=== PATIENT | female | born 1985 | race African-American/Black ===

== ENCOUNTER 2016-11-13 16:50 | Emergency (ER) | payer BC ==
[2016-11-13 17:27] VITALS: BP 129/76; PULSE 80; TEMP 97.8; BMI 26.5
[2016-11-13 17:38] LABS: URINE APPEARANCE CLEAR; URINE BILIRUBIN NEGATIVE (NEGATIVE); URINE COLOR STRAW; URINE GLUCOSE (UA) NEGATIVE (NEGATIVE); URINE KETONE NEGATIVE (NEGATIVE); URINE NITRITE NEGATIVE (NEGATIVE); URINE PROTEIN NEGATIVE (NEGATIVE); URINE UROBILINOGEN NEGATIVE E.U./dl (0.2-1.0)
[2016-11-13 17:49] LABS: URINE BLOOD 3+ (NEGATIVE); URINE LEUK ESTERASE 3+ (NEGATIVE)
[2016-11-13 17:59] LABS: URINE BACTERIA RARE /hpf (NONE SEEN); URINE RBC 1 /hpf (0-3); URINE WBC 10 /hpf (3-5); YEAST RARE
--- NOTE | 2016-11-13 18:02 | PDOC ---
History of Present Illness - General Chief Complaint: Urinary Problem Stated Complaint: UTI Time Seen by Provider: 11/13/16 17:50 History Source: Patient - History of Present Illness Timing/Duration: reports: constant Past History - Past Medical History Allergies/Adverse Reactions: Allergies Allergy/AdvReac Type Severity Reaction Status Date / Time No Known Allergies Allergy Verified 11/13/16 17:27 Home Medications: Ambulatory Orders Albuterol Sulfate Inhaler - [Ventolin HFA Inhaler -] 1 - 2 inh PO Q4H PRN #1 inhaler 04/20/16 Azithromycin [Zithromax 250mg Tablets -] 250 mg PO DAILY #6 tab 04/20/16 Nitrofurantoin Monohyd/M-Cryst [Macrobid -] 100 mg PO BID #14 capsule 11/13/16 Other medical history: PT DENIES MEDICAL HX - Immunization History Immunization Up to Date: Yes - Psycho/Social/Smoking Cessation Hx Anxiety: No Suicidal Ideation: No Smoking Status: No Smoking History: Former smoker Have you smoked in the past 12 months: Yes Number of Cigarettes Smoked Daily: 12 Cigars Per Day: 0 Information on smoking cessation initiated: No Hx Alcohol Use: No Drug/Substance Use Hx: No Substance Use Type: Marijuana Review of Systems - Review of Systems Constitutional: No: Chills, Fever : Yes: Dysuria, Frequency. No: Flank Pain, Hematuria *Physical Exam - Vital Signs Last Vital Signs Temp Pulse Resp BP Pulse Ox 97.8 F 80 16 129/76 97 11/13/16 17:22 11/13/16 17:22 11/13/16 17:22 11/13/16 17:22 11/13/16 17:22 - Physical Exam General Appearance: Yes: Appropriately Dressed. No: Apparent Distress HEENT: positive: Normal Voice Neck: positive: Supple Respiratory/Chest: negative: Respiratory Distress Gastrointestinal/Abdominal: positive: Soft. negative: Tender Musculoskeletal: negative: CVA Tenderness Integumentary: positive: Dry, Warm Neurologic: positive: Fully Oriented, Alert, Normal Mood/Affect ED Treatment Course - ADDITIONAL ORDERS Additional order review: Laboratory Results 11/13/16 17:29 Urine Color Straw Urine Appearance Clear Urine pH 6.0 Ur Specific [place] 1.002 Urine Protein Negative Urine Glucose (UA) Negative Urine Ketones Negative Urine Blood 3+ H Urine Nitrite Negative Urine Bilirubin Negative Urine Urobilinogen Negative Ur Leukocyte Esterase 3+ H Urine HCG, Qual Negative Medical Decision Making - Medical Decision Making 11/13/16 18:01 31-year-old female history of recurrent UTIs, here with dysuria with urinary frequency today, similar to her prior UTIs. No flank pain, nausea, vomiting, fever or chills. UA sent at triage and positive for leuk esterase and blood. Will treat, prior urine sensitivities reviewed *DC/Admit/Observation/Transfer Diagnosis at time of Disposition: UTI (urinary tract infection) Qualifiers: Urinary tract infection type: acute cystitis Hematuria presence: without hematuria Qualified Code(s): N30.00 - Acute cystitis without hematuria - Discharge Dispostion Disposition: HOME Condition at time of disposition: Good - Prescriptions Prescriptions: Nitrofurantoin Monohyd/M-Cryst [Macrobid -] 100 mg PO BID #14 capsule - Patient Instructions Printed Discharge Instructions: Urinary Tract Infection Additional Instructions: Take antibiotics as directed
== END 2016-11-13 18:58 | disposition home or self-care (01) ==
LOC: JERFT 16:50
DX: N30.01 Acute cystitis with hematuria (principal)
CPT/HCPCS: 81003; 81015; 84703; 99281-25

== ENCOUNTER 2017-10-13 11:26 | Emergency (ER) | payer BC ==
[2017-10-13 11:34] VITALS: BP 128/50; PULSE 106; TEMP 98.4; BMI 26.2
[2017-10-13] MEDS ORDERED: ALBUTEROL SO4 0.083% IH SOL 2.5 MG/3 ML VIAL.NEB. NEB ONE ×2 (12:00→12:07)
--- NOTE | 2017-10-13 12:16 | PDOC ---
History of Present Illness - General Chief Complaint: Cold Symptoms Stated Complaint: CHILLS, COUGHING, BODY ACHES Time Seen by Provider: 10/13/17 11:55 History Source: Patient Exam Limitations: No Limitations - History of Present Illness Initial Comments: 10/13/17 12:37 32-year-old female presents the emergency with complaints of fever, myalgia, cough, wheezing, and myalgia for the past 2 days. Patient states took no medication decided to come to the ER today. Patient denies recent illness, recent travel, recent sick contacts. Timing/Duration: reports: other (2 days) Severity: reports: moderate Possible Cause: Yes: occasional episodes Associated Symptoms: reports: cough, fever/chills, muscle aches, wheezing Past History - Travel Traveled outside of the country in the last 30 days: No - Past Medical History Allergies/Adverse Reactions: Allergies Allergy/AdvReac Type Severity Reaction Status Date / Time No Known Allergies Allergy Verified 10/13/17 11:28 Home Medications: Ambulatory Orders NK [No Known Home Medication] 10/13/17 COPD: No - Immunization History Immunization Up to Date: Yes - Suicide/Smoking/Psychosocial Hx Smoking Status: No Smoking History: Current every day smoker Have you smoked in the past 12 months: Yes Number of Cigarettes Smoked Daily: 6 Cigars Per Day: 0 Information on smoking cessation initiated: Yes 'Breaking Loose' booklet given: 10/13/17 Hx Alcohol Use: No Drug/Substance Use Hx: No Substance Use Type: Marijuana Patient Lives Alone: No Lives with/in: spouse/SO Respiratory Specific PMHX - Complaint Specific PMHX Bronchitis: No Pneumonia: No Review of Systems - Review of Systems Able to Perform ROS?: Yes Constitutional: Yes: Chills, Fever, Malaise Respiratory: Yes: Cough, Wheezing Cardiac (ROS): No: Symptoms Reported ABD/GI: No: Symptoms Reported : No: Symptoms Reported Musculoskeletal: No: Symptoms Reported Integumentary: No: Symptoms Reported Neurological: No: Symptoms reported *Physical Exam - Vital Signs Last Vital Signs Temp Pulse Resp BP Pulse Ox 98.4 F 106 H 18 128/50 100 10/13/17 11:29 10/13/17 11:29 10/13/17 11:29 10/13/17 11:29 10/13/17 11:29 - Physical Exam General Appearance: Yes: Nourished, Appropriately Dressed. No: Apparent Distress HEENT: positive: EOMI, TARAN, TMs Normal, Pharynx Normal. negative: Pale Conjunctivae Neck: positive: Supple Respiratory/Chest: positive: Wheezing (right base on inspiration) Cardiovascular: positive: Regular Rhythm, Tachycardia. negative: Murmur Gastrointestinal/Abdominal: positive: Soft. negative: Tenderness Integumentary: positive: Normal Color, Warm, Moist Neurologic: positive: Motor Strength 5/5 (ambulatory) Medical Decision Making - Medical Decision Making 10/13/17 12:42 Patient with URI symptoms and on exam had reason to the right base. Patient ordered for influenza swab and albuterol neb 10/13/17 13:06 Influenza swab negative. Patient will be treated for acute wheezy bronchitis secondary to clinical exam and physical complaints, history of bronchitis, and history of smoking. *DC/Admit/Observation/Transfer Diagnosis at time of Disposition: Acute wheezy bronchitis - Discharge Dispostion Disposition: HOME Condition at time of disposition: Good - Referrals Referrals: Bruno Zayas MD [Primary Care Provider] - - Patient Instructions Printed Discharge Instructions: DI for Acute Bronchitis Additional Instructions: Take medication as prescribed and drin plenty of fluids. May take Motrin or Tylenol for discomfort. - Post Discharge Activity
== END 2017-10-13 13:13 | disposition home or self-care (01) ==
LOC: JERFT 11:26
PROC: 3E0F7GC Introduction of Other Therapeutic Substance into Respiratory Tract, Via Natural or Artificial Opening (ICD-10-PCS; principal; 2017-10-13)
DX: J20.9 Acute bronchitis, unspecified (principal)
CPT/HCPCS: 87804; 99281-25

== ENCOUNTER 2018-05-12 22:32 | Emergency (ER) | payer BC ==
[2018-05-12 22:41] VITALS: BP 116/82; PULSE 107; TEMP 99.4; BMI 25.0
[2018-05-12 23:46] LABS: URINE APPEARANCE CLEAR; URINE BILIRUBIN NEGATIVE (<2.0 mg/dL); URINE COLOR LTYELLOW; URINE GLUCOSE (UA) NEGATIVE (NEGATIVE); URINE KETONE NEGATIVE (NEGATIVE); URINE LEUK ESTERASE NEGATIVE (NEGATIVE); URINE NITRITE NEGATIVE (NEGATIVE); URINE PROTEIN NEGATIVE (NEGATIVE); URINE UROBILINOGEN NEGATIVE mg/dL (0.2-1.0)
[2018-05-12 23:47] LABS: EPI CELLS RARE /HPF (FEW); URINE BACTERIA RARE /hpf (NONE SEEN); URINE MUCUS RARE
[2018-05-12 23:48] LABS: HCG,QUALITATIVE URINE Negative
--- NOTE | 2018-05-12 23:56 | PDOC ---
History of Present Illness <Colin Posey - Last Filed: 05/13/18 01:03> - General History Source: Patient Exam Limitations: No Limitations - History of Present Illness Initial Comments: 05/13/18 00:06 33F with PMH of "borderline asthma" presents to the ER with a one day history of fever (subjective), chills, throat pain, non productive cough, and congestion. 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 She states every time she works outside she gets sick but this time she felt a little worse than usual. She denies nausea vomiting chest pain. She states when she tries to take a deep breath her chest feels heavy. She denies all other symptoms. She is refusing CXR because she does not want to get a bill for it. She would like a note for missing work today. <Everton Mccormack - Last Filed: 05/13/18 01:10> - General Chief Complaint: Cold Symptoms Stated Complaint: WHEEZING, SORE THROAT Time Seen by Provider: 05/12/18 23:36 Past History <Colin Posey - Last Filed: 05/13/18 01:03> - Past Medical History Asthma: Yes COPD: No - Immunization History Immunization Up to Date: Yes - Suicide/Smoking/Psychosocial Hx Smoking Status: No Smoking History: Never smoked Have you smoked in the past 12 months: No Number of Cigarettes Smoked Daily: 12 Cigars Per Day: 0 Information on smoking cessation initiated: No 'Breaking Loose' booklet given: 10/13/17 Hx Alcohol Use: No Drug/Substance Use Hx: No Substance Use Type: Marijuana <Everton Mccormack - Last Filed: 05/13/18 01:10> - Past Medical History Allergies/Adverse Reactions: Allergies Allergy/AdvReac Type Severity Reaction Status Date / Time No Known Allergies Allergy Verified 05/12/18 22:40 Home Medications: Ambulatory Orders Albuterol Sulfate Inhaler - [Ventolin HFA Inhaler -] 1 - 2 inh PO QID PRN #1 inhaler 10/13/17 Azithromycin [Zithromax Tri-Cedric (3 DAYS) -] 500 mg PO DAILY #3 tablet 10/13/17 predniSONE [Deltasone -] 40 mg PO DAILY #6 tablet 10/13/17 Prednisone [Prednisone 50 MG TABLETS] 50 mg PO DAILY #4 tablet 05/13/18 Review of Systems - Review of Systems Able to Perform ROS?: Yes Is the patient limited Albanian proficient: No Constitutional: Yes: Chills, Fever (subjective) HEENTM: Yes: Nose Congestion, Throat Pain, Throat Swelling Respiratory: Yes: Cough Cardiac (ROS): Yes: Chest Tightness ABD/GI: No: Symptoms Reported, See HPI, Abdominal Distended, Abd. Pain w/ defecation, Blood Streaked Bowels, Constipated, Diarrhea, Difficulty Swallowing , Nausea, Poor Appetite, Poor Fluid Intake, Rectal Bleeding, Vomiting, Indigestion, Abdominal cramping, Tarry Stools, Other : No: Symptoms Reported, See HPI, Burning, Dysuria, Discharge, Frequency, Flank Pain, Hematuria, Incontinence, Pain, Urgency, Testicular Mass, Testicular Swelling, Lesions, Testicular Pain, Other Musculoskeletal: No: Symptoms Reported, See HPI, Back Pain, Gout, Joint Pain, Joint Swelling, Muscle Pain, Muscle Weakness, Neck Pain, Joint Stiffness, Other Integumentary: No: Symptoms Reported, See HPI, Bruising, Change in Color, Change in Hair/Nails, Dryness, Erythema, Flushing, Lesions, Lumps, Pallor, Pruritus, Rash, Sweating, Other Neurological: No: Symptoms reported, See HPI, Headache, Numbness, Paresthesia, Pre-Existing Deficit, Seizure, Tingling, Tremors, Weakness, Unsteady Gait, Ataxia, Dizziness, Other Psychiatric: No: Anxiety, Depression, Frequent Crying, Stressors, Sleep Pattern Change, Emotional Problems, Mood Swings, Change in Appetite, Other Endocrine: No: Symptoms Reported, See HPI, Excessive Sweating, Flushing, Intolerance to Cold, Intolerance to Heat, Increased Hunger, Increased Thirst, Increased Urine, Unexplained Weight Gain, Unexplained Weight Loss, Change in Weight, Other Hematologic/Lymphatic: No: Symptoms Reported, See HPI, Anemia, Blood Clots, Easy Bleeding, Easy Bruising, Bleeding Diathesis, Lymph Node Abnormalities, Swollen Glands, Other <Everton Mccormack - Last Filed: 05/13/18 01:10> *Physical Exam - Vital Signs Last Vital Signs Temp Pulse Resp BP Pulse Ox 99.4 F 107 H 16 116/82 100 05/12/18 22:38 05/12/18 22:38 05/12/18 22:38 05/12/18 22:38 05/12/18 22:38 <Colin Posey - Last Filed: 05/13/18 01:03> - Vital Signs Last Vital Signs Temp Pulse Resp BP Pulse Ox 99.4 F 107 H 16 116/82 100 05/12/18 22:38 05/12/18 22:38 05/12/18 22:38 05/12/18 22:38 05/12/18 22:38 - Physical Exam General Appearance: Yes: Nourished, Appropriately Dressed. No: Apparent Distress HEENT: positive: EOMI, TARAN, Pharyngeal Erythema (mild), Tonsillar Erythema ( mild). negative: Tonsillar Exudate Neck: positive: Supple. negative: Lymphadenopathy (R), Lymphadenopathy (L) Respiratory/Chest: positive: Lungs Clear, Wheezing, Other (speaking in full sentences no prolonged expiratory phase). negative: Respiratory Distress, Accessory Muscle Use, Labored Respiration Cardiovascular: positive: Regular Rhythm, Regular Rate, S1, S2 Gastrointestinal/Abdominal: positive: Soft. negative: Tender, Distended, Guarding Musculoskeletal: negative: CVA Tenderness Extremity: positive: Normal Capillary Refill Integumentary: positive: Dry, Warm Neurologic: positive: green end man II-XII NML intact, Fully Oriented, Alert, Normal Mood/ Affect, Normal Response, Motor Strength 5/5 <Everton Mccormack - Last Filed: 05/13/18 01:10> ED Treatment Course - ADDITIONAL ORDERS Additional order review: Laboratory Results 05/12/18 23:30 Urine Color Ltyellow Urine Appearance Clear Urine pH 6.0 Ur Specific [place] 1.005 Urine Protein Negative Urine Glucose (UA) Negative Urine Ketones Negative Urine Blood 1+ H Urine Nitrite Negative Urine Bilirubin Negative Urine Urobilinogen Negative Ur Leukocyte Esterase Negative Urine WBC (Auto) None Urine RBC (Auto) 2 Ur Epithelial Cells Rare Urine Bacteria Rare Urine Mucus Rare Urine HCG, Qual Negative - Medications Given in the ED: ED Medications Discontinued Medications Generic Name Dose Route Start Last Admin Trade Name Freq PRN Reason Stop Dose Admin Acetaminophen 500 mg 05/13/18 00:09 05/13/18 00:24 Tylenol - PO 05/13/18 00:10 500 mg ONCE ONE Administration Albuterol/Ipratropium 1 amp 05/13/18 00:00 05/13/18 00:24 Duoneb - NEB 05/13/18 00:01 1 amp ONCE ONE Administration Prednisone 40 mg 05/13/18 00:01 05/13/18 00:24 Deltasone - PO 05/13/18 00:02 40 mg ONCE ONE Administration <Colin Posey - Last Filed: 05/13/18 01:03> - ADDITIONAL ORDERS Additional order review: Laboratory Results 05/12/18 23:30 Urine Color Ltyellow Urine Appearance Clear Urine pH 6.0 Ur Specific [place] 1.005 Urine Protein Negative Urine Glucose (UA) Negative Urine Ketones Negative Urine Blood 1+ H Urine Nitrite Negative Urine Bilirubin Negative Urine Urobilinogen Negative Ur Leukocyte Esterase Negative Urine WBC (Auto) None Urine RBC (Auto) 2 Ur Epithelial Cells Rare Urine Bacteria Rare Urine Mucus Rare Urine HCG, Qual Negative <Everton Mccormack - Last Filed: 05/13/18 01:10> Medical Decision Making - Medical Decision Making 05/13/18 33F with PMH of asthma presents with Asthma exacerbation vs URI vs bronchitis Will give prednisone will give duonebs patient refusing CXR If improves after prednisone and duonebs will discharge will give tylenol 05/13/18 01:09 Patient no long has wheezing after duonebs and prednisone Will discharge <Everton Mccormack - Last Filed: 05/13/18 01:10> *DC/Admit/Observation/Transfer <TatyColin - Last Filed: 05/13/18 01:03> <Everton Mccormack - Last Filed: 05/13/18 01:10> Diagnosis at time of Disposition: Shortness of breath - Prescriptions Prescriptions: Prednisone [Prednisone 50 MG TABLETS] 50 mg PO DAILY #4 tablet - Referrals Referrals: Bruno Zayas MD [Primary Care Provider] - - Patient Instructions Printed Discharge Instructions: DI for Chronic Obstructive Pulmonary Disease Additional Instructions: Continue taking the prednisone for 4 more days. Use your albuterol inhaler every 4 hours as needed for coughing or wheezing. Follow up with your primary care doctor within 1 week. If you experience worsening cough, shortness of breath, fevers, or any other concerning symptoms, return to the ER immediately. - Post Discharge Activity Forms/Work/School Notes: Back to Work
[2018-05-13] MEDS ORDERED: predniSONE 20 MG TABLET (UD) PO ONE (00:01)
--- NOTE | 2018-05-13 00:06 | PDOC ---
Attending Attestation - Resident Resident Name: Everton Mccormack - ED Attending Attestation I have performed the following: I have examined & evaluated the patient, The case was reviewed & discussed with the resident, I agree w/resident's findings & plan, Exceptions are as noted - HPI HPI: 05/13/18 00:05 33 F with h/o asthma presents with 1 day of sore throat, cough. Pt states that when she works outside, she always gets "sick". She complains of nasal congestion and cough productive of yellow sputum. Pt denies F/C. Denies CP/SOB. - Physicial Exam PE: 05/13/18 00:06 "GENERAL: Awake, alert, and fully oriented, in no acute distress. HEAD: No signs of trauma EYES: PERRLA, EOMI, sclera anicteric, conjunctiva clear ENT: Auricles normal inspection, hearing grossly normal, nares patent, oropharynx clear without exudates. Moist mucosa NECK: Nontender, no stepoffs, Normal ROM, supple, no lymphadenopathy, JVD, or masses LUNGS: + Mild expiratory wheezes, no rales or rhonchi HEART: Regular rate and rhythm, normal S1 and S2, no murmurs, rubs or gallops ABDOMEN: Soft, nontender, normoactive bowel sounds. No guarding, no rebound. No masses EXTREMITIES: Normal range of motion, no edema. No clubbing or cyanosis. No cords, erythema, or tenderness NEUROLOGICAL: Cranial nerves II through XII intact. 5/5 strength and sensation in all extremities, Normal speech, normal gait, normal cerebellar function SKIN: Warm, Dry, normal turgor, no rashes or lesions noted." - Medical Decision Making 05/13/18 00:07 33 F with URI like symptoms, found to be wheezing on exam with low-grad temp. Likely viral syndrome and mild asthma exacerbation. - Duonebs - Prednisone - Tylenol - reassess 05/13/18 00:58 Pt reassessed s/p meds Now feels much better Lung exam completely clear at this time. Repeat HR 90. O2 sat 98% on RA. Pt is well appearing, with normal vitals. Clinically stable for DC at this time. I discussed the physical exam findings, ancillary test results and final diagnoses with the patient. I answered all of the patient's questions. The patient was satisfied with the care received and felt comfortable with the discharge plan and treatment plan. The patient agrees to follow up with the primary care physician within 24-72 hours.
[2018-05-13] MEDS ORDERED: ACETAMINOPHEN 500 MG TABLET (FP) PO ONE (00:09)
[2018-05-13] MEDS ORDERED: predniSONE 20 MG TABLET (UD) ONE (00:16)
[2018-05-13] MEDS ORDERED: ALBUTEROL SO4 2.5/IPRATROPIUM 0.5 INH SOL 3 ML VIAL.NEB. NEB ONE ×2 (00:16)
[2018-05-13] MEDS ORDERED: ACETAMINOPHEN 325 MG TABLET (FP) ONE (00:16)
== END 2018-05-13 01:28 | disposition home or self-care (01) ==
LOC: JERFT 22:32 → JER 22:32
PROC: 3E0F7GC Introduction of Other Therapeutic Substance into Respiratory Tract, Via Natural or Artificial Opening (ICD-10-PCS; principal; 2018-05-12)
DX: J45.901 Unspecified asthma with (acute) exacerbation (principal); B34.9 Viral infection, unspecified
CPT/HCPCS: 81003; 81015; 84703; 99281-25; J7620

== ENCOUNTER → 2023-04-18 | Day surgery (SDC) | payer OTHER | END | disposition home or self-care (01) | LOC: JRADIR 09:31 | PROVIDERS: ATTEND Family Medicine Geriatric Medicine | PROC: 0G9G3ZX Drainage of Left Thyroid Gland Lobe, Percutaneous Approach, Diagnostic (ICD-10-PCS; principal; 2023-04-18) | DX: E04.1 Nontoxic single thyroid nodule (principal) | CPT/HCPCS: 10005; 76942 ==

== ENCOUNTER 2023-06-23 11:17 | Emergency (ER) | payer OTHER ==
[2023-06-23 11:28] VITALS: BP 121/94; PULSE 89; RESP 18; TEMP 97.9; BMI 29.3
[2023-06-23 11:51] LABS: URINE APPEARANCE CLEAR; URINE BILIRUBIN NEGATIVE (NEGATIVE); URINE COLOR YELLOW; URINE GLUCOSE (UA) NEGATIVE (NEGATIVE); URINE KETONE NEGATIVE (NEGATIVE); URINE LEUK ESTERASE NEGATIVE (NEGATIVE); URINE NITRITE NEGATIVE (NEGATIVE); URINE PROTEIN NEGATIVE (NEGATIVE); URINE UROBILINOGEN 0.2 mg/dL (0.2-1.0)
[2023-06-23 11:54] LABS: HCG,QUALITATIVE URINE Negative
== END 2023-06-23 12:54 | disposition home or self-care (01) ==
LOC: JERFT 11:17 → JER 11:17 → JERFT 12:54
DX: R35.0 Frequency of micturition (principal); R30.0 Dysuria; R10.30 Lower abdominal pain, unspecified; N89.8 Other specified noninflammatory disorders of vagina; L29.2 Pruritus vulvae; N76.0 Acute vaginitis
CPT/HCPCS: 36415; 81003; 84703; 87070; 87086; 87186; 87205; 87491; 87591; 87661; 99283-25

== ENCOUNTER 2023-09-07 12:11 | Emergency (ER) | payer OTHER ==
[2023-09-07 12:22] VITALS: BP 124/82; RESP 18; TEMP 98.6; BMI 25.7
[2023-09-07 13:50] VITALS: PULSE 87
== END 2023-09-07 13:55 | disposition home or self-care (01) ==
LOC: JERFT 12:11
DX: R21 Rash and other nonspecific skin eruption (principal)
CPT/HCPCS: 99283-25

== ENCOUNTER 2023-09-26 22:54 | Emergency (ER) | payer OTHER ==
[2023-09-26] MEDS ORDERED: LIDOCAINE HCL 1%, 10 MG/ML (20ML VIAL) ONE (23:00)
[2023-09-26 23:01] VITALS: BP 118/82; PULSE 79; RESP 17; TEMP 98.4; BMI 25.7
== END 2023-09-27 00:20 | disposition home or self-care (01) ==
LOC: FER 22:54
PROC: 0H97XZZ Drainage of Abdomen Skin, External Approach (ICD-10-PCS; principal; 2023-09-26)
DX: L02.211 Cutaneous abscess of abdominal wall (principal); R19.09 Other intra-abdominal and pelvic swelling, mass and lump
CPT/HCPCS: 99282-25

== ENCOUNTER 2023-10-25 14:55 | Emergency (ER) | payer OTHER ==
[2023-10-25 15:14] VITALS: BP 139/90; PULSE 108; RESP 16; TEMP 98.4; BMI 27.4
[2023-10-25] MEDS ORDERED: FLUTICASONE PROP 0.05% 16 GM NASAL SPRAY NS ONE (15:49)
[2023-10-25] MEDS ORDERED: SODIUM CHLORIDE NASAL SPRAY 44 ML BOTTLE NS ONE (15:53)
[2023-10-25 16:40] LABS: HEMATOCRIT 38.5 % (32.4-45.2); HEMOGLOBIN 12.6 G/dL (10.7-15.3); MCH 27.4 pg (25.7-33.7); MCHC 32.8 g/dl (32.0-36.0); MEAN CELL VOLUME 83.6 fl (80-96); MEAN PLT VOLUME 6.5 fl (7.5-11.1); PLATELET COUNT 447.2 10^3/uL (134-434); RDW 15.2 % (11.6-15.6); WHITE BLOOD COUNT 7.1 10^3/uL (4.0-10.8)
[2023-10-25 16:49] LABS: PLATELET ESTIMATE SLT INCREASE
[2023-10-25 16:58] LABS: ALBUMIN 4.2 g/dl (3.4-5.0); BILIRUBIN,TOTAL 0.3 mg/dl (0.2-1); CALCIUM 9.7 mg/dl (8.5-10.1); CREATININE 0.7 mg/dl (0.6-1.3); POTASSIUM 4.2 mmol/L (3.5-5.1)
[2023-10-25] MEDS ORDERED: AMOX TR/POT CLAV 875MG/125MG TABLETS (FP) PO ONE (17:10)
[2023-10-25] MEDS ORDERED: AMOX TR/POT CLAV 875MG/125MG TABLETS (FP) ONE (17:16)
== END 2023-10-25 17:22 | disposition home or self-care (01) ==
LOC: FER 14:55
DX: R42 Dizziness and giddiness (principal); R51.9 Headache, unspecified; R09.81 Nasal congestion; J32.9 Chronic sinusitis, unspecified
CPT/HCPCS: 36415; 80053; 85025; 99283-25

== ENCOUNTER 2024-05-17 16:08 | Emergency (ER) | payer OTHER ==
[2024-05-17 16:24] VITALS: BP 146/109; PULSE 107; RESP 16; TEMP 98.2; BMI 28.3
== END 2024-05-17 18:10 | disposition home or self-care (01) ==
LOC: FER 16:08
DX: L29.2 Pruritus vulvae (principal); M79.10 Myalgia, unspecified site; R53.83 Other fatigue; R35.0 Frequency of micturition; R50.9 Fever, unspecified
CPT/HCPCS: 81003; 81015; 87086; 99283-25

== ENCOUNTER 2024-10-04 13:01 | Emergency (ER) | payer OTHER ==
[2024-10-04 13:37] VITALS: RESP 20; TEMP 98.4; BMI 25.7
[2024-10-04] MEDS: IBUPROFEN 600 MG TABLET (FP) PO ONE (14:01)
[2024-10-04 14:04] VITALS: BP 130/85; PULSE 78
== END 2024-10-04 14:08 | disposition home or self-care (01) ==
LOC: FER 13:01
DX: M79.622 Pain in left upper arm (principal); N64.4 Mastodynia
CPT/HCPCS: 76882-TC-LT; 99284-25